=== PATIENT | male | born 1955 | race Caucasian/White ===

== ENCOUNTER 2019-02-03 05:33 | Emergency (ER) | payer OTHER, SELFPAY ==
[2019-02-03 05:36] VITALS: BP 153/74; PULSE 66; RESP 16; TEMP 36.5; O2SAT 97
--- NOTE | 2019-02-03 05:48 | ED.GENADUL_ITS ---
Discharge Plan Disposition Patient Disposition: HOME Condition: Good Discharge Details Chief Complaint: EarProblem Clinical Impression: Otitis externa Primary Care Provider: Madhuri Childress ED Provider: Ki Montoya Home Meds and New Rx's Prescriptions: No Action No Known Home Meds RF: 0 Discharge Instructions Instructions: Otitis Externa (ED) Additional Instructions: Please apply the drops to your left ear. Please apply 3 drops, 3 times daily. Do this for the next 7 to 10 days until your symptoms resolved. If you notice any worsening of your symptoms, or any new symptoms such as vomiting, diarrhea, fever, chills, shortness of breath, chest pain, numbness, weakness, or fainting , please return immediately to the emergency department for reevaluation. Please follow up with your primary care provider as soon as possible for reassessment and reevaluation. As always, it was a pleasure participating in your medical care today. Referrals: Madhuri Childress MD [Primary Care Provider] - Medical Decision Making This is a 63-year-old male with no past medical history who presents today with signs and symptoms consistent with otitis externa. No history of diabetes. Exam demonstrates evidence of mild otitis externa. We will give ciprofloxacin for treatment. We discussed red flags which to return. I have extensively reviewed the treatment plan and discharge instructions with the patient. I have addressed all patient concerns at this time. The patient was made aware of what symptoms to monitor for that would warrant a return to the emergency department. Discussed the plan with the patient, they demonstrate verbal understanding and agreement with our assessment and plan at this time. HPI General Date/Time Provider Initiated Documentation: 02/03/19 05:44 . HPI Narrative: This is a 63-year-old male who presents today for an earache for the last 2 days. It is in his left ear. He denies any fever or chills. He denies any drainage from the ear. He has no history of diabetes. He does admit to recent swimming. No other complaints at this time. He did try Debrox in the left ear but this did not improve his symptoms. No other modifying factors. 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 3.ENT: Atraumatic external nose and ears. Moist MM. Neck: Symmetric, trachea midline, No thyromegaly. Notable swelling of the left ear canal and signs and symptoms consistent with left-sided otitis externa. No mastoid tenderness. 4.CVS: +S1/S2, No murmurs or gallops. Peripheral pulses 2+ and equal in all extremities. Brisk capillary refill in all extremities. 5.RESP: Unlabored respiratory effort. Clear to auscultation bilaterally. No wheezes rales or rhonchi 6.GI: Soft, Nontender/Nondistended, No hepatosplenomegaly. No guarding or rebound. 7.MSK: Normocephalic/Atraumatic, Extremities w/o deformity or ttp No cyanosis or clubbing, Normal movement of all extremities 8.Skin: Warm, Dry. No rashes or lesions. 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 Sensation grossly intact, no focal neurologic deficits. 10.Psych: (AAO) x3. Appropriate mood and affect Course Vital Signs Temperature 36.5 C 02/03/19 05:36 Pulse 66 02/03/19 05:36 Respiratory Rate 16 02/03/19 05:36 Blood Pressure 153/74 H 02/03/19 05:36 Pulse Oximetry 97 02/03/19 05:36 Temperature 36.5 C 02/03/19 05:36 Temperature Source Skin 02/03/19 05:36 Pulse 66 02/03/19 05:36 Respiratory Rate 16 02/03/19 05:36 Respiratory Effort Non-Labored 02/03/19 05:39 Blood Pressure 153/74 H 02/03/19 05:36 Blood Pressure Position Sitting 02/03/19 05:36 Pulse Oximetry 97 02/03/19 05:36 Oxygen Delivery Method Room Air 02/03/19 05:36 Oxygen Flow Rate 0 02/03/19 05:36 Pain Level 5 02/03/19 05:44
== END 2019-02-03 05:55 | disposition home or self-care (01) ==
PROVIDERS: Emergency Provider Student in an Organized Health Care Education/Training Program; PCP Family Medicine
DX: H60.502 Unspecified acute noninfective otitis externa, left ear (principal)
CPT/HCPCS: 99283

== ENCOUNTER 2020-01-14 21:49 | Outpatient (REF) | payer OTHER, SELFPAY ==
[2020-01-14 22:00] LABS: HCT 46.1 % (40.0-50.0); Mean Corp. HGB Concentration 32.5 g/dL (32.0-36.0); Mean Corpuscular Hemoglobin 28.5 pg (27.0-33.0); Mean Corpuscular Volume 87.6 fL (80-95); Mean Platelet Volume 11.3 fL (8.0-11.0); Platelet Count 175 x1000/uL (130-400); RBC 5.26 m/cumm (4.50-6.00); RBC Distribution Width 13.8 % (11.8-14.1); White Blood Cell Count 4.85 k/cumm (4.4-10.8)
[2020-01-14 22:21] LABS: ALT 33 U/L (16-63); AST 19 U/L (15-37); Albumin 3.9 g/dL (3.4-5.0); Alkaline Phosphatase 79 U/L (46-116); Anion Gap 11.1 mmol/L (3-11); BUN 19 mg/dL (7-18); Bilirubin, Total 0.5 mg/dL (0.2-1.0); CO2 24.9 mmol/L (21.0-32.0); CREATININE 1.13 mg/dL (0.70-1.30); Calcium 9.1 mg/dL (8.5-10.1); Calculated LDL 115 mg/dL (<100); Chloride 104 mmol/L (98-107); Cholesterol 189 mg/dL (<200); Glucose 118 mg/dL (74-106); HDL Cholesterol 42 mg/dL (40-60); Potassium 4.4 mmol/L (3.5-5.1); Sodium 140 mmol/L (136-145); TSH 2.05 uIU/mL (0.36-3.74); Total Protein 7.3 g/dL (6.4-8.2); Triglyceride 161 mg/dL (<150)
[2020-01-15 09:57] LABS: Hemoglobin A1C 5.9 % (3.8-5.6)
== END 2020-01-14 22:09 ==
LOC: NCHCN 21:49
PROVIDERS: PCP Family Medicine; Visit Provider Family Medicine
DX: R42 Dizziness and giddiness (principal); Z13.220 Encounter for screening for lipoid disorders; R73.9 Hyperglycemia, unspecified
CPT/HCPCS: 80053; 80061; 85027; 83036; 84443

== ENCOUNTER 2020-02-17 00:55 | Outpatient (CLI) | payer OTHER, SELFPAY ==
--- NOTE | 2020-02-17 13:50 | DI.US_ITS ---
APPROVED REPORT EXAM: Comprehensive 2D, Doppler, and color-flow Echocardiogram Patient Location: Out-Patient Cns: Wen Smart RDCS (AE) Indications: Murmur, Dizziness Other Information Study Quality: Adequate Conclusion Left Ventricle : The left ventricle is normal size. There is normal left ventricular wall thickness. There is normal LV segmental wall motion. The left ventricular diastolic function is normal. LVEF is 60%. Right Ventricle : The right ventricle is normal size. The right ventricular systolic function is norm al. The RVSP is 25mmHg. Atria : The left atrium size is normal. The right atrium size is normal. Valves: There are no hemodynamically significant valvular lesions. Great Vessels : The aortic root is normal in size. The ascending aorta is mildly dilated (3.5cm). Aor tic arch is normal in caliber. IVC is normal in size and collapses >50% with inspiration. Please see remainder of study for further details. Wall motion Left Ventricle The left ventricle is normal size. The left ventricular systolic function is normal. The left ventric ular ejection fraction is within the normal range. There is normal left ventricular wall thickness. T here is normal LV segmental wall motion. The left ventricular diastolic function is normal. There is no ventricular septal defect visualized. LVEF is 60%. Right Ventricle The right ventricle is normal size. The right ventricular systolic function is normal. The RVSP is 25 mmHg. Atria The left atrium size is normal. The right atrium size is normal. The interatrial septum is intact wit h no evidence for an atrial septal defect. Aortic Valve The Aortic valve is sclerotic. Aortic valve is trileaflet. There is no aortic valvular stenosis. Triv ial aortic regurgitation. Mitral Valve Mild mitral annular calcification. No evidence of mitral valve stenosis. Trivial mitral regurgitation . Tricuspid Valve The tricuspid valve is normal in structure. There is no tricuspid valve stenosis. Trace tricuspid reg urgitation. Pulmonic Valve The pulmonary valve is normal in structure. There is no pulmonic valvular stenosis. Trace pulmonic re gurgitation. Great Vessels The aortic root is normal in size. The ascending aorta is mildly dilated (3.5cm). Aortic arch is norm al in caliber. IVC is normal in size and collapses >50% with inspiration. Pericardium There is no pericardial effusion. There is no pleural effusion. 2D Dimensions IVSD d PLAX 0.92 cm M: 0.6-1.2 LV Vol A2C d MOD 115.1 mL LVPW d PLAX 0.88 cm M: 0.6 - 1.2 LV Vol A4C d MOD 121.6 mL LVID d PLAX 4.83 cm M: 4.2 - 5.8 LA vol/ BSA A2C s A-L 25.7 mL/m2 LVDs 3.35 cm M: 2.5 - 4.0 LA vol/ BSA A4C s A-L 15.5 mL/m2 Ao Root d 2.97 cm M: 3.1 - 3.7 LA Vol/ BSA Biplane s A-L 20.1 mL/m2 RA Area A4C 15.52 cm2 LA Area A4C s MOD 14.57 cm2 RA Vol/ BSA A4C s A-L 16.9 mL/m2 LA Area A2C s MOD 18.89 cm2 Ao Asc Diam d 3.53 cm M: 2.6 - 3.4 LV EF A4C MOD 60.5 % LV EF Teichholz 57.0 % LV EF A2C MOD 61.4 % LVEF (Lerma's) 60.30 % M: 52 - 72 LV EF Biplane MOD 60.3 % LV Volume 85.04 mL M: 62 - 150 SV 71.91 mL LV Volume Index 36.34 mL/m2 M: 34 - 74 SV Index 30.65 mL/m2 LV Vol Biplane MOD 119.3 mL FS 29.90 % M-Mode TAPSE 2.61 cm (M/F) >1.7 LV Diastology MV E' medial 0.081 (>0.07 m/s) E/A Ratio 1.5 LV E/e MED 12.00 (<14) MV E Vmax 0.97 (0.4-1.3 m/s) MV E' lateral 0.139 (>0.1 m/s) MV A Vmax 0.65 (0.4-1.3 m/s) LV E/e LAT 6.95 (<14) MV E/A Ratio 1.44 MV E/E' medial 12.03 MV E/E' lateral 6.99 Aortic Valve LVOT Area 3.75 cm2 AoV Area Vmax 2.29 cm2 LVOT Vmax 1.02 m/s AoV Area/ BSA (Vmax) 0.98 cm2/m2 LVOT Mean Avery. 0.66 m/s MANDA Mean Avery. 2.01 cm2 LVOT Peak Grad 4.2 mmHg MANDA Mean Avery. Index 0.86 cm2/m2 LVOT Mean Grad 2.0 mmHg LVOT VTI 0.225 m LVOT Diam s 2.15 cm AoV Vmax 1.67 m/s Velocity Ratio 0.61 AoV Mean Avery. 1.23 m/s AoV Peak Grad 11.2 mmHg LVOT SV 84.30 mL AoV Mean Grad 6.5 mmHg AoV VTI 0.347 m AoV Area VTI 2.43 cm2 AoV Area/ BSA (VTI) 1.04 cm/m2 Mitral Valve MV DT 218 (160-240 msec) MV PHT 63 msec MV Area PHT 3.49 cm2 Pulmonary Valve PV Vmax 1.10 (0.5-1.5 m/s) RVOT Peak Gr. 2.58 mmHg PV Peak Grad 4.9 mmHg RVOT Mean Gr. 1.30 mmHg PV Mean Grad 2.6 mmHg RVOT VTI 0.178 m PV VTI 0.205 m RVOT Vmax 0.80 m/s Tricuspid Valve TR Peak Grad 22.2 mmHg TR Vmax 2.36 m/s RA Pressure 3.00 mmHg RVSP (TR) 25.2 mmHg
== END 2020-02-17 01:15 ==
PROVIDERS: PCP Family Medicine; Visit Provider Family Medicine
DX: R01.1 Cardiac murmur, unspecified (principal); R42 Dizziness and giddiness; I77.810 Thoracic aortic ectasia
CPT/HCPCS: 93306

== ENCOUNTER 2020-03-05 07:37 | Day surgery (SDC) | payer OTHER, SELFPAY ==
[2020-03-05 07:39] VITALS: BP 138/72; PULSE 54; RESP 16; TEMP 36.2; O2SAT 95
[2020-03-05] MEDS: Lactated Ringers 1,000 ML 80 ML IV (08:04)
--- NOTE | 2020-03-05 08:45 | W.PM.DSUDISC ---
Discharge Plan Disposition Patient Disposition: HOME Condition: Good Discharge Details Reason For Visit: Colonoscopy Attending Provider: Aliyah Esposito Primary Care Provider: Madhuri Childress Discharge Instructions Additional Instructions: Findings: Your colonoscopy showed diverticulosis. Make sure to take in 30 grams of fiber daily. Follow up: Plan for routine colon screening in 10 years. Please call if you develop: fevers >101.5 Nausea or Vomiting Abdominal pain that is not transient DAY SURGERY UNIT POST COLONOSCOPY INSTRUCTIONS 1. Because there will be medication in your system for the next 24 hours, you may feel a little sleepy. Your coordination will be affected. Therefore: a. Do not drive or operate dangerous equipment for 24 hours. b. Do not drink alcohol beverages for 24 hours (not even beer). c. Plan to go home and rest for the day. 2. Generally there are no restrictions on your activity after a day or so has gone by, but you may feel a bit fatigued for a few days. 3 After you arrive home you may have a light meal and return to a normal diet as you can tolerate it without feeling sick to your stomach. 4. After surgery, you may feel pain or discomfort. This should be only transient, but if it persists please contact your doctor. 5. If there are any questions regarding the findings of your procedure, please feel free to contact your doctor. 6. If you are unable to contact your doctor with a problem, contact the hospital at [phone]. 7. Continue all your regular medications unless directed otherwise. I understand the above instructions and have no questions. Signature of Patient or Responsible Adult Escort Date/Time Name of Responsible Adult Escort Signature of Nurse Date/Time Activity:: Activity as Tolerated Diet:: As Tolerated Discharge Orders Discharge Orders: Discharge Order (Routine); Ordered 03/05/20 Ordered By: Aliyah Esposito DS: Diagnosis Discharge Diagnosis (1) Diverticulosis: Status: Acute
--- NOTE | 2020-03-05 08:46 | W.COLOREPORT ---
Date of service: 03/05/20 Time of Service: 09:32 Colonoscopy Report Date of procedure: 03/05/20 Pre-op diagnosis general: History of colon polyps Post-op diagnosis procedure note: other (Diverticulosis) Procedure: Colonoscopy Surgeon: Aliyah Esposito Anesthesia proc note operative: MAC Indications: This 64 year old man presents for routine colonoscopy. His last colonoscopy in 2011 showed polyps. He has no symptoms or FH colon cancer. Procedure Description: The patient was placed in the left Manley position. Propofol was titrated to sedation. Digital rectal examination revealed no abnormalities. The scope was advanced to the cecum without difficulty. The ileocecal valve and appendiceal orifice were clearly identified. The prep was good. The scope was slowly withdrawn over the course of greater than 6 minutes with no abnormalities seen in the ascending, transverse, descending colon. In the sigmoid colon he had moderate diverticular change with some associated mucosal hyperememia. This appeared chronic in nature. The rectum was normal including on retroflexed view. The patient tolerated the procedure well and was stable to recovery. Plan for routine screening colonoscopy in 10 years or sooner if symptoms indicate.
[2020-03-05 10:00] VITALS: BP 133/79; PULSE 52; RESP 22; TEMP 36; O2SAT 96
[2020-03-05 10:30] VITALS: PULSE 42; RESP 22; TEMP 35.7; O2SAT 99
[2020-03-05 10:45] VITALS: BP 139/84; PULSE 43; RESP 15; TEMP 35.6; O2SAT 99
== END 2020-03-05 10:45 | disposition home or self-care (01) ==
PROVIDERS: PCP Family Medicine; Visit Provider Surgery
PROC: 0DJD8ZZ Inspection of Lower Intestinal Tract, Via Natural or Artificial Opening Endoscopic (ICD-10-PCS; CPT 45378; principal; 2020-03-05 09:00)
DX: Z12.11 Encounter for screening for malignant neoplasm of colon (principal); Z86.010 Personal history of colon polyps; K57.30 Diverticulosis of large intestine without perforation or abscess without bleeding
CPT/HCPCS: 45378

== ENCOUNTER 2020-07-23 01:01 | Outpatient (CLI) | payer OTHER, SELFPAY ==
[2020-07-23 13:26] LABS: Anion Gap 7.7 mmol/L (3-11); BUN 20 mg/dL (7-18); CO2 29.3 mmol/L (21.0-32.0); CREATININE 1.21 mg/dL (0.70-1.30); Calcium 9.1 mg/dL (8.5-10.1); Chloride 102 mmol/L (98-107); Glucose 107 mg/dL (74-106); Potassium 4.9 mmol/L (3.5-5.1); Sodium 139 mmol/L (136-145)
== END 2020-07-23 01:21 ==
PROVIDERS: PCP Family Medicine; Visit Provider Family Medicine
DX: R73.09 Other abnormal glucose (principal)
CPT/HCPCS: 36415; 80048; 83036

== ENCOUNTER → 2022-02-06 14:54 | Outpatient (BNVA) | payer MEDICARE, SELFPAY | PROVIDERS: PCP Nurse Practitioner Family; Referring Provider Nurse Practitioner Family; Visit Provider Student in an Organized Health Care Education/Training Program | DX: M70.51 Other bursitis of knee, right knee (principal) | CPT/HCPCS: 99213 ==

== ENCOUNTER → 2022-04-03 14:40 | Outpatient (BNVA) | payer MEDICARE, SELFPAY | PROVIDERS: PCP Nurse Practitioner Family; Referring Provider Nurse Practitioner Family; Visit Provider Student in an Organized Health Care Education/Training Program | DX: M70.51 Other bursitis of knee, right knee (principal) | CPT/HCPCS: 99213 ==

== ENCOUNTER 2022-09-05 02:09 | Outpatient (CLI) | payer MEDICARE, SELFPAY ==
[2022-09-05 12:33] LABS: Anion Gap 10.2 mmol/L (3-11); BUN 18 mg/dL (7-18); CO2 27.8 mmol/L (21.0-32.0); CREATININE 1.2 mg/dL (0.70-1.30); Calcium 9.5 mg/dL (8.5-10.1); Calculated LDL 117 mg/dL (<100); Chloride 105 mmol/L (98-107); Cholesterol 199 mg/dL (<200); Estimated GFR 66.28 (mL/min/1.73m2); Glucose 134 mg/dL (74-106); HDL Cholesterol 55 mg/dL (40-60); Hemoglobin A1C 6.6 % (<5.7); Potassium 4.1 mmol/L (3.5-5.1); Sodium 143 mmol/L (136-145); Triglyceride 138 mg/dL (<150)
[2022-09-05 19:17] LABS: PSA, Screening 0.6 ng/mL (<=4.5)
== END 2022-09-05 02:10 | disposition home or self-care (01) ==
LOC: LOS 02:09
PROVIDERS: PCP Nurse Practitioner Family; Visit Provider Nurse Practitioner Family
DX: E78.5 Hyperlipidemia, unspecified (principal); R73.03 Prediabetes; R73.01 Impaired fasting glucose; Z12.5 Encounter for screening for malignant neoplasm of prostate
CPT/HCPCS: 36415; 80048; 80061; 84153; 83036

== ENCOUNTER 2023-02-05 04:34 | Outpatient (CLI) | payer MEDICARE, SELFPAY ==
[2023-02-06 10:37] LABS: Lyme Ab w Rflx to Lyme Confirm Negative (Negative)
[2023-02-08 19:39] LABS: Anaplasma phagocytophilum Negative (Negative); B. miyamotoi PCR Negative (Negative); Babesia divergens/MO-1 Negative (Negative); Babesia duncani Negative (Negative); Babesia microti Negative (Negative); Ehrlichia chaffeensis Negative (Negative); Ehrlichia ewingii/canis Negative (Negative); Ehrlichia muris eauclairensis Negative (Negative)
== END 2023-02-05 04:35 | disposition home or self-care (01) ==
PROVIDERS: PCP Nurse Practitioner Family; Visit Provider Nurse Practitioner Family
DX: W57.XXXA Bitten or stung by nonvenomous insect and other nonvenomous arthropods, initial encounter (principal); S20.469A Insect bite (nonvenomous) of unspecified back wall of thorax, initial encounter
CPT/HCPCS: 36415; 87798; 86618

== ENCOUNTER 2023-07-02 03:26 | Outpatient (CLI) | payer MEDICARE, SELFPAY ==
[2023-07-02 08:36] LABS: Hemoglobin A1C 5.9 % (<5.7)
== END 2023-07-02 03:27 | disposition home or self-care (01) ==
LOC: LBO 03:27
PROVIDERS: PCP Nurse Practitioner Family; Visit Provider Nurse Practitioner Family
DX: R73.03 Prediabetes (principal)
CPT/HCPCS: 36415; 83036

== ENCOUNTER 2023-09-11 03:13 | Outpatient (CLI) | payer MEDICARE, SELFPAY ==
[2023-09-11 12:20] LABS: Anion Gap 9.6 mmol/L (3-11); BUN 21 mg/dL (7-18); CO2 26.4 mmol/L (21.0-32.0); CREATININE 1.2 mg/dL (0.70-1.30); Calcium 9.7 mg/dL (8.5-10.1); Chloride 107 mmol/L (98-107); Estimated GFR 65.87 (mL/min/1.73m2); Glucose 119 mg/dL (74-106); Potassium 4.3 mmol/L (3.5-5.1); Sodium 143 mmol/L (136-145)
[2023-09-11 12:33] LABS: Hemoglobin A1C 6.3 % (<5.7)
[2023-09-11 18:08] LABS: PSA, Screening 0.4 ng/mL (<=4.5)
[2023-09-11 18:47] LABS: Hepatitis C Ab w Rflx HCV PCR Negative (Negative)
== END 2023-09-11 03:14 | disposition home or self-care (01) ==
LOC: LOS 03:14
PROVIDERS: PCP Nurse Practitioner Family; Visit Provider Nurse Practitioner Family
DX: R73.03 Prediabetes (principal); E78.5 Hyperlipidemia, unspecified; E66.8 Other obesity; Z12.5 Encounter for screening for malignant neoplasm of prostate; Z11.59 Encounter for screening for other viral diseases
CPT/HCPCS: 36415; 80048; 84153; 86803; 83036

== ENCOUNTER 2024-10-13 02:03 | Outpatient (CLI) | payer MEDICARE, SELFPAY ==
[2024-10-13 13:05] LABS: Anion Gap 7.5 mmol/L (3-11); BUN 19 mg/dL (7-18); CO2 29.5 mmol/L (21.0-32.0); CREATININE 1.2 mg/dL (0.70-1.30); Calcium 9.7 mg/dL (8.5-10.1); Calculated LDL 102 mg/dL (<100); Chloride 109 mmol/L (98-107); Cholesterol 186 mg/dL (<200); Estimated GFR 65.46 (mL/min/1.73m2); Glucose 142 mg/dL (74-106); HDL Cholesterol 54 mg/dL (>or=40); Potassium 4.5 mmol/L (3.5-5.1); Sodium 146 mmol/L (136-145); Triglyceride 151 mg/dL (<150)
== END 2024-10-13 02:04 | disposition home or self-care (01) ==
LOC: LOS 02:03
PROVIDERS: PCP Nurse Practitioner Family; Visit Provider Nurse Practitioner Family
DX: E78.5 Hyperlipidemia, unspecified (principal); R73.03 Prediabetes
CPT/HCPCS: 36415; 80048; 80061

== ENCOUNTER 2025-01-14 22:54 | Outpatient (REF) | payer MEDICARE, SELFPAY ==
[2025-01-14 21:21] LABS: COMMENT (LAB VIEW ONLY) 173.91 mg/dL; Microalb ug/mg Crea 11.2 ug/mg Cr
== END 2025-01-14 22:55 | disposition home or self-care (01) ==
LOC: LBN 22:54
PROVIDERS: PCP Nurse Practitioner Family; Visit Provider Family Medicine
DX: E11.9 Type 2 diabetes mellitus without complications (principal)
CPT/HCPCS: 82043; 82570

== ENCOUNTER 2025-04-22 11:27 | Outpatient (CLI) | payer MEDICARE, SELFPAY ==
--- NOTE | 2025-04-22 10:30 | DI.RAD_ITS ---
Exam(s) XR ELBOW LT LIMITED EXAM: XR ELBOW LT LIMITED CLINICAL HISTORY: ? LEFT BICEPS TEAR. TECHNIQUE: 2D digital imaging was performed. COMPARISON: No exams were available for comparison FINDINGS: 3 views Two views No evidence fracture nor elbow joint effusion. There is no swelling of the olecranon bursa radial head and neck appear unremarkable as do the epicondyles. There are no loose intra-articular bodies. Biceps tendon attachment site the proximal radius radial tuberosity exhibits no evidence of avulsion fracture at this level. IMPRESSION: No significant osseous findings in the elbow. No joint effusion. DATA REPOSITORY: RADIATION DOSE DELIVERED:
== END 2025-04-22 11:28 | disposition home or self-care (01) ==
LOC: DIORS 11:27
PROVIDERS: PCP Nurse Practitioner Family; Referring Provider Nurse Practitioner Family; Visit Provider Student in an Organized Health Care Education/Training Program
DX: S46.212A Strain of muscle, fascia and tendon of other parts of biceps, left arm, initial encounter (principal); W19.XXXA Unspecified fall, initial encounter
CPT/HCPCS: 99203; 73070